=== PATIENT | male | born 1965 | race American Indian/Alaskan Native ===

== ENCOUNTER 2021-06-15 08:00 | Outpatient (CLI) | payer OTHER ==
[~2021-06-15 08:00] MED LIST: KETO10TA2 PO; ORPH100T PO
== END 2021-06-15 08:30 | disposition home or self-care (01) ==
LOC: PPH VACUNA 08:00
DX: Z23 Encounter for immunization (principal)

== ENCOUNTER 2021-07-06 08:00 | Outpatient (CLI) | payer OTHER | END 2021-07-06 08:30 | disposition home or self-care (01) | LOC: PPH VACUNA 08:00 | DX: Z23 Encounter for immunization (principal) ==

== ENCOUNTER 2023-07-23 13:05 | Outpatient (CLI) | payer OTHER | END 2023-07-23 13:38 | disposition home or self-care (01) | LOC: SONOGRAMA 13:05 | DX: S83.282A Other tear of lateral meniscus, current injury, left knee, initial encounter (principal); M25.562 Pain in left knee ==

== ENCOUNTER 2023-07-27 06:40 | Emergency (ER) | payer OTHER ==
[~2023-07-27] VITALS: Ht 160 cm; Wt 104.3 kg
== END 2023-07-27 09:23 | disposition home or self-care (01) ==
LOC: ER 06:41
DX: M25.562 Pain in left knee (principal)

== ENCOUNTER 2024-01-24 07:18 | Outpatient (CLI) | payer OTHER | END 2024-01-24 07:23 | disposition home or self-care (01) | LOC: MRI 07:18 | PROVIDERS: ATTEND Orthopaedic Surgery | DX: M25.461 Effusion, right knee (principal); M25.462 Effusion, left knee | CPT/HCPCS: 73721 ==